=== PATIENT | male | born 2000 | race Caucasian/White ===

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

== ENCOUNTER 2021-03-14 17:48 | Emergency (ER) | payer BC ==
[~2021-03-14] VITALS: Ht 177.8 cm; Wt 61.2 kg
--- NOTE | 2021-03-14 18:46 | REP ---
INDICATION: pain and swelling COMPARISON: None. TECHNIQUE: AP, lateral, bilateral oblique views right hand. FINDINGS: The osseous structures and joint spaces are intact and normal. There is no evidence for acute fracture or dislocation. Lateral view suggests soft tissue swelling along the dorsal aspect metacarpal bones and possible small laceration which should be correlated clinically no significant subcutaneous emphysema or foreign body noted.. IMPRESSION: Swelling and possible small laceration. <Electronically signed by Bladimir Matthew > 03/14/21 [id number]
[2021-03-14] MEDS ORDERED: CEPHALEXIN 500 MG CAP PO ONE (19:45)
[2021-03-14] MEDS ORDERED: CEPH500C PO (19:47)
[2021-03-14 20:06] VITALS: BP 127/87
== END 2021-03-14 20:08 | disposition home or self-care (01) ==
LOC: M ED 17:48
DX: L03.113 Cellulitis of right upper limb (principal); F17.290 Nicotine dependence, other tobacco product, uncomplicated; G43.909 Migraine, unspecified, not intractable, without status migrainosus

== ENCOUNTER 2021-04-29 21:56 | Emergency (ER) | payer BC, SELFPAY ==
[~2021-04-29] VITALS: Ht 177.8 cm; Wt 60.4 kg
[2021-04-29 21:56] VITALS: BP 132/78
[~2021-04-29 21:56] MED LIST: CEPH500C PO
== END 2021-04-30 02:33 | disposition left against medical advice (07) ==
LOC: M ED 21:56
DX: Z53.21 Procedure and treatment not carried out due to patient leaving prior to being seen by health care provider (principal)

== ENCOUNTER 2023-09-27 13:27 | Emergency (ER) | payer OTHER, SELFPAY ==
[~2023-09-27] VITALS: Ht 177.8 cm; Wt 63.2 kg
[2023-09-27 13:27] VITALS: TEMP 97
[2023-09-27 14:22] LABS: AMORPHOUS SEDIMENT SMALL (NEGATIVE); APPEARANCE, URINE CLOUDY (CLEAR); BACTERIA, URINE AUTO NEGATIVE (NEGATIVE); BILIRUBIN, URINE AUTO NEGATIVE (NEGATIVE); BLOOD, URINE BLOOD NEGATIVE (NEGATIVE); COLOR, URINE YELLOW (YELLOW); GLUCOSE, URINE (UA) AUTO NEGATIVE (NEGATIVE); KETONE, URINE AUTO NEGATIVE (NEGATIVE); LEUKOCYTE ESTERASE, URINE AUTO NEGATIVE (NEGATIVE); MUCUS, URINE SMALL (NEGATIVE); NITRITE, URINE AUTO NEGATIVE (NEGATIVE); PROTEIN, URINE AUTO 1+ mg/dL (NEGATIVE); RBC, URINE AUTO 5 /HPF (0-3); SPECIFIC GRAVITY URINE AUTO 1.026 (1.002-1.035); SQUAMOUS EPITHELIAL CELL UR AU 0 /HPF (0-6); UROBILINOGEN, URINE AUTO 0.2 mg/dL (0.0-2.0); WBC, URINE AUTO 9 /HPF (0-3)
[2023-09-27 15:42] LABS: CHLAMYDIA DNA AMPLIFICATION NEGATIVE (NEGATIVE); GC DNA AMPLIFICATION NEGATIVE (NEGATIVE)
[2023-09-27 17:48] VITALS: BP 133/85; O2SAT 98
== END 2023-09-27 18:35 | disposition home or self-care (01) ==
LOC: M ED 13:27
DX: N50.3 Cyst of epididymis (principal)